=== PATIENT | male | born 1960 | race American Indian/Alaskan Native ===

== ENCOUNTER 2017-11-28 20:49 | Inpatient (IN) | payer OTHER ==
[2017-11-28] MEDS ORDERED: ASPIRIN PO ONE (21:22)
[2017-11-28] MEDS ORDERED: ASPIRIN ONE (21:23)
[2017-11-28 22:17] LABS: Hematocrit 42.9 % (35.5-45.6); Hemoglobin 14.6 gm/dl (11.8-15.2); Lymphocytes % (Auto) 47.9 % (13.4-35.0); Mean Corpuscular HGB Conc 34 % (32-34); Mean Corpuscular Hemoglobin 32 pg (28-32); Mean Corpuscular Volume 94 fl (84-94); Monocytes % (Auto) 8.9 % (0.0-7.3); Platelet Count 189 K/mm3 (140-440); Red Blood Count 4.59 M/mm3 (3.65-5.03); Red Cell Distribution Width 13.4 % (13.2-15.2)
[2017-11-28 22:18] LABS: Basophils % (Auto) 0.6 % (0.0-1.8); Eosinophils # (Auto) 0.2 K/mm3 (0.0-0.4); Monocytes # (Auto) 0.6 K/mm3 (0.0-0.8)
[2017-11-28 22:39] LABS: BUN/Creatinine Ratio 14; Blood Urea Nitrogen 15 mg/dL (9-20); Hemolysis Index 11
[2017-11-29] MEDS ORDERED: LOVENOX SUB-Q ONE (08:02)
--- NOTE | 2017-11-29 08:30 | Emergency Department Report ---
ED Chest Pain HPI - General Chief Complaint: Chest Pain Stated Complaint: CHEST PAIN,HEARD TO BREATH Time Seen by Provider: 11/29/17 06:13 Source: patient Mode of arrival: Ambulatory Limitations: No Limitations - History of Present Illness Initial Comments: PT. SAYS THE CHEST PAIN BEEN GOING ON INTERMITTENTLY FOR A WEEK.HE LAST TOOK HIS BP MEDICATIONS 2 WEEKS AGO . ALSO COMLAINING OF LEFT KNEE PAIN MD Complaint: chest pain Onset/Timin (DAY) -: Gradual Onset: during rest Pain Location: substernal Pain Radiation: LUE Severity: moderate Severity scale (0 -10): 0 Quality: sharp Consistency: intermittent Worsens With: nothing Treatments Prior to Arrival: none - Related Data Home Medications Medication Instructions Recorded Confirmed Last Taken Aspir-Low 81 mg PO DAILY 11/28/17 11/28/17 Unknown Carvedilol 25 mg PO BID 11/28/17 11/28/17 Unknown Losartan-Hctz 100-25 mg Tab 1 tab PO DAILY 11/28/17 11/28/17 Unknown Mobic 15 mg PO DAILY 11/28/17 11/28/17 Unknown hydrALAZINE 50 mg PO BID 11/28/17 11/28/17 Unknown Allergies Allergy/AdvReac Type Severity Reaction Status Date / Time lisinopril Allergy Angioedema Verified 11/28/17 21:17 Heart Score - HEART Score History: Moderately suspicious EKG: Normal Age: 45-65 Risk factors: > 3 risk factors or hx of atherosclerotic disease Troponin: < normal limit HEART Score: 4 ED Review of Systems ROS: Stated complaint: CHEST PAIN,HEARD TO BREATH Other details as noted in HPI Comment: All other systems reviewed and negative ED Past Medical Hx - Past Medical History Hx Hypertension: Yes Hx Arthritis: Yes Additional medical history: Irregular Heart beat, Left knee pain. - Surgical History Additional Surgical History: Right Shoulder Hardware - Social History Smoking Status: Never Smoker Substance Use Type: None - Medications Home Medications: Home Medications Medication Instructions Recorded Confirmed Last Taken Type Aspir-Low 81 mg PO DAILY 11/28/17 11/28/17 Unknown History Carvedilol 25 mg PO BID 11/28/17 11/28/17 Unknown History Losartan-Hctz 100-25 mg Tab 1 tab PO DAILY 11/28/17 11/28/17 Unknown History Mobic 15 mg PO DAILY 11/28/17 11/28/17 Unknown History hydrALAZINE 50 mg PO BID 11/28/17 11/28/17 Unknown History ED Physical Exam - General Limitations: No Limitations General appearance: alert, in no apparent distress - Head Head exam: Present: atraumatic, normocephalic - Eye Eye exam: Present: normal appearance, PERRL - ENT ENT exam: Present: normal exam, mucous membranes moist - Neck Neck exam: Present: normal inspection. Absent: tenderness - Respiratory Respiratory exam: Present: normal lung sounds bilaterally. Absent: respiratory distress - Cardiovascular Cardiovascular Exam: Present: regular rate, normal rhythm. Absent: systolic murmur, diastolic murmur, rubs, gallop - GI/Abdominal GI/Abdominal exam: Present: soft, normal bowel sounds - Rectal Rectal exam: Present: deferred - Extremities Exam Extremities exam: Present: normal inspection, full ROM - Back Exam Back exam: Present: normal inspection - Neurological Exam Neurological exam: Present: alert, oriented X3 - Psychiatric Psychiatric exam: Present: normal affect, normal mood - Skin Skin exam: Present: warm, dry, intact, normal color. Absent: rash ED Course Vital Signs 11/28/17 11/29/17 11/29/17 21:07 02:51 04:32 Temperature 98.5 F 98.1 F Pulse Rate 88 71 69 Respiratory 18 18 Rate Blood Pressure 167/115 Blood Pressure 164/115 142/98 [Left] O2 Sat by Pulse 97 98 98 Oximetry 11/29/17 11/29/17 06:01 07:00 Temperature 98.7 F Pulse Rate 69 80 Respiratory 18 16 Rate Blood Pressure Blood Pressure 129/97 141/102 [Left] O2 Sat by Pulse 98 100 Oximetry DUTCH score - Dutch Score Age > 65: (0) No Aspirin use within the Past 7 Days: (0) No 3 or more CAD Risk Factors: (1) Yes 2 or more Angina events in past 24 hrs: (1) Yes Known CAD with more than 50% Stenosis: (0) No Elevated Cardiac Markers: (0) No ST Deviation Greater than 0.5mm: (0) No DUTCH Score: 2 ED Medical Decision Making - Lab Data Result diagrams: 11/28/17 21:31 11/28/17 21:31 - EKG Data -: EKG Interpreted by [facility] EKG shows normal: sinus rhythm (NORMAL), axis (NORMAL), intervals (NORMAL), QRS complexes (NORMAL), ST-T waves (NORMAL) - Medical Decision Making I SPOKE TO DR BRUNNER ABOUT THE PATIENT AND HE SAID TO ADMIT TO [facility] Critical care attestation.: If time is entered above; I have spent that time in minutes in the direct care of this critically ill patient, excluding procedure time. ED Disposition Clinical Impression: Chest pain Disposition: DC09 OP ADMIT IP TO THIS HOSP Is pt being admited?: Yes Does the pt Need Aspirin: Yes Condition: Stable Instructions: Chest Pain (ED) Referrals: PRIMARY CARE, [Primary Care Provider] - 3-5 Days
[2017-11-29] MEDS ORDERED: SODIUM CHLORIDE FLUSH SYRINGE 10 ML IV PRN (10:15)
--- NOTE | 2017-11-29 10:20 | History and Physical Report ---
History of Present Illness Date of examination: 11/29/17 Date of admission: 11/29/17 08:00 Chief complaint: p History of present illness: This is a 57-year-old male presents with significant past medical history of hypertension with complaints of substernal chest pain described as a dull ache for approximately 2 weeks that has progressively worsened. Patient reports no nausea or vomiting but does report associated dyspnea and diaphoresis. Patient states the pain is not necessarily associated with exertional activity. Patient denies any fever or chills. No cough or cold-like symptoms. No headache or visual disturbances. Patient does report reproducible pain with palpation on the xyphiod and chest wall. Patient denies any recent cardiac evaluation. Past History Past Medical History: hypertension Past Surgical History: No surgical history Social history: no significant social history Family history: no significant family history Medications and Allergies Allergies Allergy/AdvReac Type Severity Reaction Status Date / Time lisinopril Allergy Angioedema Verified 11/28/17 21:17 Home Medications Medication Instructions Recorded Confirmed Last Taken Type Aspir-Low 81 mg PO DAILY 11/28/17 11/28/17 Unknown History Carvedilol 25 mg PO BID 11/28/17 11/28/17 Unknown History Losartan-Hctz 100-25 mg Tab 1 tab PO DAILY 11/28/17 11/28/17 Unknown History Mobic 15 mg PO DAILY 11/28/17 11/28/17 Unknown History hydrALAZINE 50 mg PO BID 11/28/17 11/28/17 Unknown History Active Meds: Active Medications Influenza Virus Vaccine Quadrival (Fluarix Quad [id number](36 Mos+) 0.5 ml IM .ONCE ONE Stop: 11/30/17 12:01 Review of Systems All systems: negative Exam - Constitutional Vitals: Temp Pulse Resp BP Pulse Ox 98.3 F 81 20 166/120 96 11/29/17 08:49 11/29/17 08:49 11/29/17 08:49 11/29/17 08:49 11/29/17 08:49 General appearance: Present: no acute distress, well-nourished - EENT Eyes: Present: PERRL ENT: hearing intact, clear oral mucosa - Neck Neck: Present: supple, normal ROM - Respiratory Respiratory effort: normal Respiratory: bilateral: CTA - Cardiovascular Heart Sounds: Present: S1 & S2. Absent: rub, click - Extremities Extremities: pulses symmetrical, No edema Peripheral Pulses: within normal limits - Abdominal General gastrointestinal: Present: soft, non-tender, non-distended, normal bowel sounds Male genitourinary: Present: normal - Integumentary Integumentary: Present: clear, warm, dry - Musculoskeletal Musculoskeletal: gait normal, strength equal bilaterally - Psychiatric Psychiatric: appropriate mood/affect, intact judgment & insight - Neurologic Neurologic: CNII-XII intact, moves all extremities Results - Labs CBC & Chem 7: 11/28/17 21:31 11/28/17 21:31 Labs: Laboratory Last Values WBC 6.3 K/mm3 (4.5-11.0) 11/28/17 21: RBC 4.59 M/mm3 (3.65-5.03) 11/28/17 21: Hgb 14.6 gm/dl (11.8-15.2) 11/28/17 21: Hct 42.9 % (35.5-45.6) 11/28/17 21: MCV 94 fl (84-94) 11/28/17 21: MCH 32 pg (28-32) 11/28/17 21: MCHC 34 % (32-34) 11/28/17 21: RDW 13.4 % (13.2-15.2) 11/28/17 21: Plt Count 189 K/mm3 (140-440) 11/28/17 21:31 Lymph % (Auto) 47.9 % (13.4-35.0) H 11/28/17 21: Sharkey % (Auto) 8.9 % (0.0-7.3) H 11/28/17 21:31 Eos % (Auto) 3.0 % (0.0-4.3) 11/28/17 21: Baso % (Auto) 0.6 % (0.0-1.8) 11/28/17 21: Lymph # 3.0 K/mm3 (1.2-5.4) 11/28/17 21: Sharkey # 0.6 K/mm3 (0.0-0.8) 11/28/17 21: Eos # 0.2 K/mm3 (0.0-0.4) 11/28/17 21: Baso # 0.0 K/mm3 (0.0-0.1) 11/28/17 21:31 Seg Neutrophils % 39.6 % (40.0-70.0) L 11/28/17 21:31 Seg Neutrophils # 2.5 K/mm3 (1.8-7.7) 11/28/17 21:31 Sodium 140 mmol/L (137-145) 11/28/17 21:31 Potassium 4.4 mmol/L (3.6-5.0) 11/28/17 21:31 Chloride 101.8 mmol/L (98-107) 11/28/17 21:31 Carbon Dioxide 26 mmol/L (22-30) 11/28/17 21:31 Anion Gap 17 mmol/L 11/28/17 21:31 BUN 15 mg/dL (9-20) 11/28/17 21:31 Creatinine 1.1 mg/dL (0.8-1.5) 11/28/17 21:31 Estimated GFR > 60 ml/min 11/28/17 21:31 BUN/Creatinine Ratio 14 % 11/28/17 21:31 Glucose 93 mg/dL (75-100) 11/28/17 21:31 Calcium 9.0 mg/dL (8.4-10.2) 11/28/17 21:31 Troponin T < 0.010 ng/mL (0.00-0.029) 11/29/17 03:30 Assessment and Plan Assessment and plan: Chest pain. Patient will be placed on chest pain protocol and have follow-up Lexiscan in the morning. Accelerated hypertension. Resume losartan, hydrochlorothiazide, hydralazine and Coreg. We will also add Norvasc to the regimen.
[2017-11-29] MEDS ORDERED: MORPHINE IV PRN ×2 (10:56→11:35)
[2017-11-29 12:00] LABS: Basophils % (Auto) 0.7 % (0.0-1.8); Eosinophils # (Auto) 0.2 K/mm3 (0.0-0.4); Eosinophils % (Auto) 3.3 % (0.0-4.3); Hematocrit 42.3 % (35.5-45.6); Hemoglobin 14.5 gm/dl (11.8-15.2); Lymphocytes # (Auto) 2.2 K/mm3 (1.2-5.4); Lymphocytes % (Auto) 43.8 % (13.4-35.0); Mean Corpuscular HGB Conc 34 % (32-34); Mean Corpuscular Hemoglobin 32 pg (28-32); Mean Corpuscular Volume 93 fl (84-94); Monocytes # (Auto) 0.4 K/mm3 (0.0-0.8); Monocytes % (Auto) 7.7 % (0.0-7.3); Platelet Count 178 K/mm3 (140-440); Red Blood Count 4.53 M/mm3 (3.65-5.03); Red Cell Distribution Width 13.4 % (13.2-15.2)
[2017-11-29 12:19] LABS: BUN/Creatinine Ratio 16; Blood Urea Nitrogen 14 mg/dL (9-20); Calcium 8.9 mg/dL (8.4-10.2); Hemolysis Index 13
[2017-11-29] MEDS: APRESOLINE PO SCH ×2 (18:01→21:46)
[2017-11-29] MEDS: COREG PO SCH (21:47)
[2017-11-29] MEDS ORDERED: NON-FORMULARY (Carvedilol 25 MG) PO SCH (22:00)
[2017-11-29] MEDS ORDERED: NON-FORMULARY (Hydralazine 50 MG) PO SCH (22:00)
[2017-11-29] MEDS ORDERED: APRESOLINE PO SCH (22:00)
[2017-11-30] MEDS: APRESOLINE PO SCH ×2 (05:36→15:22)
[2017-11-30] MEDS ORDERED: LEXISCAN IV ONE ×2 (08:07→08:50)
--- NOTE | 2017-11-30 08:28 | Discharge Summary ---
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 Patient reported no nausea or vomiting but does report associated dyspnea and diaphoresis. Patient stated the pain was not necessarily associated with exertional activity. Patient denied any fever or chills. No cough or cold-like symptoms. No headache or visual disturbances. Patient does report reproducible pain with palpation in the xyphiod region and chest wall. EKG and cardiac isoenzymes were found to be within normal limits. The patient was noted to have accelerated hypertension which was treated with increasing his home medication of hydralazine and the addition of Norvasc. Patient underwent Lexiscan which was reported by the a operator to nursing to be negative for ischemia. Etiology of chest pain is likely musculoskeletal associated with costochondritis. Patient reported prior to discharge complaints of fatigue after walking long distances. I offered to continue to hospitalize the patient and perform echocardiogram as well as CT of the chest. However, patient refused and wanted to be discharged home. I explained the tests the patient but he continued to refuse. Dedicated Discharge time 31 minutes. Disposition: TO HOME OR SELFCARE Time spent for discharge: 31 Core Measure Documentation - Palliative Care Palliative Care/ Comfort Measures: Not Applicable - Core Measures Any of the following diagnoses?: none Exam - Constitutional Vitals: Temp Pulse Resp BP Pulse Ox 97.6 F 77 20 136/85 96 11/30/17 05:31 11/30/17 05:31 11/30/17 05:31 11/30/17 05:31 11/30/17 05:31 General appearance: Present: no acute distress, well-nourished - EENT Eyes: Present: PERRL ENT: hearing intact, clear oral mucosa - Neck Neck: Present: supple, normal ROM - Respiratory Respiratory effort: normal Respiratory: bilateral: CTA - Cardiovascular Heart Sounds: Present: S1 & S2. Absent: rub, click - Extremities Extremities: pulses symmetrical, No edema Peripheral Pulses: within normal limits - Abdominal General gastrointestinal: Present: soft, non-tender, non-distended, normal bowel sounds Male genitourinary: Present: normal - Integumentary Integumentary: Present: clear, warm, dry - Musculoskeletal Musculoskeletal: gait normal, strength equal bilaterally - Psychiatric Psychiatric: appropriate mood/affect, intact judgment & insight - Neurologic Neurologic: CNII-XII intact, moves all extremities Plan Activity: no restrictions Weight Bearing Status: Full Weight Bearing Diet: regular Follow up with: PRIMARY CARE, [Primary Care Provider] - 3-5 Days Prescriptions: amLODIPine [Norvasc] 5 mg PO QDAY #30 tablet Aspirin [Aspirin BABY CHEW TAB] 81 mg PO QDAY #30 tab.chew Carvedilol [Coreg] 25 mg PO BID #30 tablet hydrALAZINE [Apresoline TAB] 75 mg PO Q8HR #90 tablet Hydrochlorothiazide [HCTZ] 25 mg PO QDAY #30 tablet Losartan [Cozaar] 100 mg PO QDAY #30 tablet Pantoprazole [Protonix] 40 mg PO QDAY #30 tablet
[2017-11-30] MEDS ORDERED: HCTZ PO SCH (10:00)
[2017-11-30] MEDS ORDERED: LOSARTAN HCTZ PO SCH (10:00)
[2017-11-30] MEDS ORDERED: COZAAR PO SCH (10:00)
[2017-11-30] MEDS ORDERED: ASPIR LOW 81 MG PO SCH (10:00)
[2017-11-30] MEDS ORDERED: LOVENOX SUB-Q SCH (10:00)
[2017-11-30] MEDS ORDERED: BABY ASPIRIN PO SCH (10:00)
[2017-11-30] MEDS ORDERED: NORVASC PO SCH (10:00)
[2017-11-30] MEDS: COREG PO SCH (11:19)
[2017-11-30] MEDS ORDERED: Fluarix Quad 2017-2018(36 MOS+ IM ONE (12:00)
[2017-11-30 15:21] VITALS: BP 141/98
--- NOTE | 2017-11-30 17:07 | Treadmill Report ---
MYOCARDIAL PERFUSION IMAGING STUDY FINDINGS: Resting myocardial perfusion images revealed slightly diminished radioisotope activity in the inferior wall region. This is probably due to uptake from the liver causing slightly diminished activity in the inferior wall area. There is some heterogeneous activity in the inferior wall noted. This is probably due to artifact. On post-Lexiscan, the images appear to be similar to the resting images. Again, there is slightly diminished radioisotope activity noted in the inferior wall region. This is probably due to diaphragmatic attenuation plus liver uptake. On gated scan, ejection fraction is noted to be diminished at 44%. IMPRESSION: 1. This test is negative for ischemia. 2. Mildly reduced ejection fraction of 44%. JOB# [id number] KEYONNA/FAYE
== END 2017-11-30 17:56 | disposition home or self-care (01) | DRG 206 ==
LOC: ED 20:49 → 4A 11-29 08:00
PROVIDERS: ADMIT Hospitalist; ATTEND Hospitalist
PROC: 3E0234Z Introduction of Serum, Toxoid and Vaccine into Muscle, Percutaneous Approach (ICD-10-PCS; principal; 2017-11-30)
DX: M94.0 Chondrocostal junction syndrome [Tietze] (principal); I10 Essential (primary) hypertension; R07.89 Other chest pain; M19.90 Unspecified osteoarthritis, unspecified site; Z79.899 Other long term (current) drug therapy; Z23 Encounter for immunization
CPT/HCPCS: 36415; 78452; 80048; 84484; 85025; 90686; 93005; 93010; 93017; A9502; J1650; J2270; J2785